=== PATIENT | female | born 1995 | race Caucasian/White ===

== ENCOUNTER 2019-10-20 22:51 | Emergency (ER) | payer OTHER ==
[2019-10-20] MEDS ORDERED: DIPHTH,PERTUSS(ACELL),TET 0.5 ML DISP.SYRIN IM ONE (23:02)
[2019-10-20 23:08] VITALS: BP 132/91; PULSE 86; TEMP 99; BMI 26.8
--- NOTE | 2019-10-20 23:21 | PDOC ---
History of Present Illness - General Chief Complaint: Laceration Stated Complaint: LAC Time Seen by Provider: 10/20/19 23:01 History Source: Patient Exam Limitations: Clinical Condition - History of Present Illness Initial Comments: 10/20/19 23:22 Patient with no significant past medical history present with complaint of laceration to left arm with a kitchen knife over 2 hours ago while at home by her trying to cut avocado. 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 Denies numbness or tingling sensation. Denies difficulty moving fingers. Patient does not recall last tetanus vaccine Timing/Duration: reports: just prior to arrival Past History - Medical History Allergies/Adverse Reactions: Allergies Allergy/AdvReac Type Severity Reaction Status Date / Time No Known Allergies Allergy Verified 10/20/19 23:07 Home Medications: Ambulatory Orders Amox-Tr/K Cl [Augmentin - 875Mg Tablet] 1 tab PO BID #14 tablet 10/20/19 - Psycho-Social/Smoking History Smoking History: Never smoked Review of Systems - Review of Systems Able to Perform ROS?: Yes Is the patient limited Tamazight proficient: No Constitutional: No: Chills, Fever HEENTM: No: Symptoms Reported, See HPI, Eye Pain, Blurred Vision, Tearing, Recent change in vision, Double Vision, Cataracts, Ear Pain, Ocular Prothesis, Ear Discharge, Nose Pain, Nose Congestion, Tinnitus, Nose Bleeding, Hearing Loss, Throat Pain, Throat Swelling, Mouth Pain, Dental Problems, Difficulty Swallowing, Mouth Swelling, Other Respiratory: No: Symptoms reported, See HPI, Cough, Orthopnea, Shortness of Breath, SOB with Exertion, SOB at Rest, Stridor, Wheezing, Productive cough, Hemoptysis, Other Cardiac (ROS): No: Symptoms Reported Musculoskeletal: Yes: Symptoms Reported, See HPI, Muscle Pain (Left arm over laceration) Integumentary: Yes: Symptoms Reported, See HPI, Other (Laceration to left thumb) Neurological: No: Symptoms reported, Numbness, Paresthesia, Weakness All Other Systems: Reviewed and Negative *Physical Exam - Vital Signs Last Vital Signs Temp Pulse Resp BP Pulse Ox 99.0 F 86 20 132/91 98 10/20/19 23:01 10/20/19 23:01 10/20/19 23:01 10/20/19 23:01 10/20/19 23:01 - Physical Exam 10/20/19 23:26 GENERAL: Well developed, well nourished. Awake and alert. No acute distress. PULMONARY: No evidence of respiratory distress. MUSCULOSKELETAL : mild tenderness over radial lateral aspect of left thumb over proximal phalange over laceration area. Full range of motion of thumb. 5 out of 5 strength to left thumb. No bony deformities SKIN: Warm and dry. Normal capillary refill. 2 cm superficial linear laceration to radial lateral aspect of left thumb with no bleeding. NEUROLOGICAL: Alert, awake, appropriate. No motor deficits in the lower extremities. Gait is normal without ataxia. PSYCHIATRIC: Cooperative. Good eye contact. Appropriate mood and affect. General Appearance: Yes: Nourished, Appropriately Dressed. No: Apparent Distress Procedures - Laceration/Wound Repair Left Anterior Plantar Finger 1st digit Wound Length: to 2.5 cm (2cm) Wound Explored: clean, no foreign body present Wound's Depth, Shape: superficial, linear Irrigated w/ Saline: Yes Betadine Prep: Yes Anesthesia: 1% Lidocaine Amount of Anesthetic (ccs): 2 Wound Repaired With: Sutures Suture Size/Type: 4:0, nylon Number of Sutures: 3 Layer Closure: No Sterile Dressing Applied: Yes Splint Applied: No Sling Applied: No Progress: 10/20/19 23:26 Wound cleaned with Betadine and closed with three 4-0 nylon interrupted sutures after IV infiltrated with 2 cc 1% lidocaine with close approximation. Hemostasis achieved. Bacitracin applied to wound and wound covered adhesive bandage. Patient tolerated procedure well. ED Treatment Course - Medications Given in the ED: ED Medications Discontinued Medications Generic Name Dose Route Start Last Admin Trade Name Freq PRN Reason Stop Dose Admin Diphtheria/Tetanus/Acell Pertussis 0.5 ml 10/20/19 23:02 10/20/19 23:07 Boostrix - IM 10/20/19 23:03 0.5 ml .ONCE ONE Administration Medical Decision Making - Medical Decision Making 10/20/19 23:24 Patient with no significant past medical history present with complaint of laceration to left thumb with a kitchen knife over 2 hours ago while at home by her trying to cut avocado. 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 Denies numbness or tingling sensation. Denies difficulty moving fingers. Patient does not recall last tetanus vaccine Exam significant for 2 cm linear superficial laceration to radial lateral aspect of left thumb with no bleeding. Full range of motion of fingers. Normal strength to left thumb. Wound cleaned with Betadine and closed with three 4-0 nylon interrupted sutures after IV infiltrated with 2 cc 1% lidocaine with close approximation. Hemostasis achieved. Bacitracin applied to wound and wound covered adhesive bandage. Patient tolerated procedure well. Patient educated on home wound care and stable for discharge Augmentin antibiotic for infection prophylaxis with advised to take Motrin as needed for pain and apply bacitracin to wound with follow-up in 1 week for suture removal 10/20/19 23:28 Boostrix tetanus vaccine given prior to discharge Discharge - Discharge Information Problems reviewed: Yes Clinical Impression/Diagnosis: Laceration of left thumb Qualifiers: Encounter type: initial encounter Damage to nail status: without damage Foreign body presence: without foreign body Qualified Code(s): S61.012A - Laceration without foreign body of left thumb without damage to nail, initial encounter Condition: Stable Disposition: HOME - Admission No - Additional Discharge Information Prescriptions: Amox-Tr/K Cl [Augmentin - 875Mg Tablet] 1 tab PO BID #14 tablet - Follow up/Referral - Patient Discharge Instructions Patient Printed Discharge Instructions: DI for Laceration Repair Additional Instructions: Keep wound dry and clean for the next 24 hours. Apply bacitracin to wound twice a day. Take prescribed antibiotics and finish. Follow-up in 1 week for suture removal. Take Motrin as needed for pain - Post Discharge Activity
== END 2019-10-20 23:33 | disposition home or self-care (01) ==
LOC: JERFT 22:51
PROC: 0HQGXZZ Repair Left Hand Skin, External Approach (ICD-10-PCS; principal; 2019-10-20)
PROC: 3E0234Z Introduction of Serum, Toxoid and Vaccine into Muscle, Percutaneous Approach (ICD-10-PCS; principal; 2019-10-20)
DX: S61.012A Laceration without foreign body of left thumb without damage to nail, initial encounter (principal); W26.0XXA Contact with knife, initial encounter
CPT/HCPCS: 90715; 99283-25

== ENCOUNTER 2021-04-23 00:12 | Day surgery (SDC) | payer OTHER ==
[2021-04-23 00:37] VITALS: BMI 25.8
[2021-04-23] MEDS ORDERED: SODIUM CHLORIDE 0.9% 500 ML INFUS.BAG IV ONE (01:07)
[2021-04-23] MEDS ORDERED: KETOROLAC TROMETHAMINE 30 MG/1 ML VIAL IVPUSH ONE (01:07)
[2021-04-23] MEDS ORDERED: ONDANSETRON 4 MG/2 ML VIAL IVPUSH ONE (01:08)
[2021-04-23] MEDS ORDERED: KETOROLAC TROMETHAMINE 30 MG/1 ML VIAL ONE ×2 (01:20→09:30)
[2021-04-23] MEDS ORDERED: ONDANSETRON 4 MG/2 ML VIAL ONE (01:20)
[2021-04-23 01:39] LABS: EOS % 2.9 % (0-4.5); HEMATOCRIT 33.8 % (32.4-45.2); HEMOGLOBIN 11.3 GM/dL (10.7-15.3); LYMPH % 31.6 % (8-40); MCH 26.8 pg (25.7-33.7); MCHC 33.6 g/dl (32.0-36.0); MEAN CELL VOLUME 79.8 fl (80-96); MEAN PLT VOLUME 7.5 fl (7.5-11.1); NEUT % 53.5 % (42.8-82.8); PLATELET COUNT 361 10^3/uL (134-434); RBC 4.23 M/mm3 (3.60-5.2); RDW 13.8 % (11.6-15.6); WHITE BLOOD COUNT 8.1 K/mm3 (4.0-10.0)
[2021-04-23 01:42] LABS: URINE APPEARANCE CLOUDY; URINE BILIRUBIN NEGATIVE (NEGATIVE); URINE COLOR YELLOW; URINE GLUCOSE (UA) NEGATIVE (NEGATIVE); URINE KETONE 3+ (NEGATIVE); URINE LEUK ESTERASE NEGATIVE (NEGATIVE); URINE NITRITE NEGATIVE (NEGATIVE); URINE PROTEIN NEGATIVE (NEGATIVE); URINE UROBILINOGEN 0.2 mg/dL (0.2-1.0)
[2021-04-23 01:57] LABS: ALBUMIN 3.9 g/dl (3.4-5.0); CALCIUM 9.1 mg/dL (8.5-10.1)
[2021-04-23 02:00] LABS: CREATININE 0.6 mg/dL (0.55-1.3)
[2021-04-23 02:02] LABS: BILIRUBIN,TOTAL 0.5 mg/dL (0.2-1); TOT PROT 7.4 g/dl (6.4-8.2)
[2021-04-23] MEDS ORDERED: LACTATED RINGERS SOLUTION 1000 ML INFUS.BAG IV ONE (05:22)
[2021-04-23] MEDS ORDERED: PROPOFOL 20 ML ONE ×2 (05:35)
[2021-04-23] MEDS ORDERED: ROCURONIUM BROMIDE 50 MG/5 ML SYRINGE ONE (05:35)
[2021-04-23] MEDS ORDERED: SUCCINYLCHOLINE CHLORIDE 200 MG/10 ML SYRINGE ONE (05:35)
[2021-04-23] MEDS ORDERED: ETOMIDATE 20 MG/10 ML AMPUL IVPUSH ONE (05:36)
[2021-04-23 05:41] LABS: INR 1.19 (0.83-1.09); PROTHROMBIN TIME (PATIENT) 13.7 SEC (9.7-13.0)
[2021-04-23 05:43] LABS: ACTIVATED PTT 26.6 SECONDS (25.2-36.5)
[2021-04-23] MEDS ORDERED: fentaNYL CITRATE 250 MCG/5 ML VIAL ONE (06:38)
[2021-04-23] MEDS ORDERED: MIDAZOLAM HCL 2 MG/2 ML SINGLE DOSE VIAL ONE ×2 (06:38→08:38)
[2021-04-23] MEDS ORDERED: KETAMINE HCL 200 MG/20 ML VIAL ONE (06:39)
[2021-04-23] MEDS ORDERED: DEXMEDETOMIDINE HCL 200 MCG/2 ML IVPB ONE (06:45)
[2021-04-23] MEDS ORDERED: ACETAMINOPHEN INJECTION 100 ML IVPB ONE (06:45)
[2021-04-23] MEDS ORDERED: IBUPROFEN 800 MG/8 ML IJ IVPB PRN (08:17)
[2021-04-23] MEDS ORDERED: ceFAZolin SODIUM 1 GM VIAL ONE (08:54)
[2021-04-23] MEDS ORDERED: ceFAZolin SODIUM 1 GM VIAL IVPB ONE (08:55)
[2021-04-23] MEDS ORDERED: NEOSTIGMINE METHYLSULFATE 0.5 MG/ML - 10 ML MDV ONE (09:33)
[2021-04-23] MEDS ORDERED: GLYCOPYRROLATE 0.2 MG/1 ML VIAL ONE (09:33)
[2021-04-23] MEDS ORDERED: BUPIVACAINE HCL/PF 0.5% (5 MG/ML) 30 ML VIAL IJ ONE (09:34)
[2021-04-23] MEDS ORDERED: oxyCODONE HCL 5 MG TABLET PO PRN ×2 (11:16)
[2021-04-23] MEDS ORDERED: LACTATED RINGERS SOLUTION 1,000 ML IV SCH (11:30)
[2021-04-23 13:54] VITALS: TEMP 98.6
[2021-04-23] MEDS ORDERED: oxyCODONE HCL 5 MG TABLET ONE (14:30)
[2021-04-23 15:34] VITALS: BP 122/66; PULSE 82
== END 2021-04-23 16:40 | disposition home or self-care (01) ==
LOC: JER 00:12 → JASUSAT 04:27
PROVIDERS: ATTEND Obstetrics & Gynecology
PROC: 0UT54ZZ Resection of Right Fallopian Tube, Percutaneous Endoscopic Approach (ICD-10-PCS; 2021-04-23)
PROC: 10T24ZZ Resection of Products of Conception, Ectopic, Percutaneous Endoscopic Approach (ICD-10-PCS; principal; 2021-04-23 05:24)
DX: O00.101 Right tubal pregnancy without intrauterine pregnancy (principal); K66.1 Hemoperitoneum
CPT/HCPCS: 36415; 74177-TC; 76830-TC; 80053; 81003; 84702; 84703; 85025; 85610; 85730; 86850; 86900; 86901; 87086; 87186; 87491; 87591; 88305-TC; 94760; 99285-25; C9803; J0131; U0003; U0005